=== PATIENT | female | born 1980 | race Caucasian/White ===

== ENCOUNTER 2019-06-25 13:40 | Outpatient (CLI) | payer BC ==
--- NOTE | 2019-06-25 15:26 | RAD ---
RADIOGRAPH CERVICAL SPINE 7 VIEWS: DATE: 06/25/2019 HISTORY: "Cervical root disorder" 38-year-old female with cervicalgia TECHNIQUE: Lateral views in flexion, extension, and neutral. Bilateral oblique views. AP view. Open-mouth view. FINDINGS: There is reversal of curvature, with apex of kyphosis at C3-4. Minimal degenerative retrolisthesis of C5 on C6. No instability between flexion and extension. Disc space narrowing is moderate at C3-4 and C5-6, and mild at C4-5. The rest of the disc spaces are maintained. Vertebral body heights are ma intained. Uncinate process osteophyte encroachment upon bilateral neural foramina at multiple levels. Atlantoaxial joints are normal. No high-grade DJD of facet joints identified. IMPRESSION: 1. Cervical spondylosis with mild and moderate degenerative disc disease. 2. Reversal of curvature. 3. No instability. 4. Multilevel bilateral neural foraminal stenosis due to uncinate process encroachment.
== END 2019-06-25 13:41 | disposition home or self-care (01) ==
LOC: BICRAD 13:40
PROVIDERS: ATTEND Specialist
DX: G54.2 Cervical root disorders, not elsewhere classified (principal); M50.30 Other cervical disc degeneration, unspecified cervical region; M47.812 Spondylosis without myelopathy or radiculopathy, cervical region; M48.02 Spinal stenosis, cervical region
CPT/HCPCS: 72052

== ENCOUNTER 2019-09-04 08:40 | Outpatient (CLI) | payer BC ==
--- NOTE | 2019-09-04 09:10 | RAD ---
XR Lumbar Spine 2 Or 3 View HISTORY: Back pain. COMPARISON: None. FINDINGS: The vertebral bodies are normal in height disc spaces all appear well preserved. No abnorma l motion in flexion or extension minimal osteophytic changes are seen. IMPRESSION: Tiny osteophytes without significant disc narrowing.
== END 2019-09-04 08:41 | disposition home or self-care (01) ==
LOC: TBSIIMAG 08:40
PROVIDERS: ATTEND Neurological Surgery
DX: M54.5 Low back pain (principal); M25.78 Osteophyte, vertebrae
CPT/HCPCS: 72100